=== PATIENT | male | born 1945 | race Asian ===

== ENCOUNTER 2023-12-13 04:28 | Day surgery (SDC) | payer OTHER, BC ==
[2023-12-05 16:27] VITALS: BMI 27.5
[2023-12-13 08:37] VITALS: TEMP 98
[2023-12-13 09:09] VITALS: BP 111/46; PULSE 61; RESP 16
== END 2023-12-13 09:19 | disposition home or self-care (01) ==
LOC: JASU-ENDO 04:28
PROVIDERS: ATTEND Internal Medicine Gastroenterology
PROC: 0DJD8ZZ Inspection of Lower Intestinal Tract, Via Natural or Artificial Opening Endoscopic (ICD-10-PCS; principal; 2023-12-13 08:00)
DX: Z12.11 Encounter for screening for malignant neoplasm of colon (principal); K64.8 Other hemorrhoids; Z86.010 Personal history of colon polyps; Z80.0 Family history of malignant neoplasm of digestive organs